=== PATIENT | female | born 2000 | race Caucasian/White ===

== ENCOUNTER 2023-03-08 17:56 | Emergency (ER) | payer OTHER, SELFPAY ==
[2023-03-08 17:59] VITALS: BP 120/80; PULSE 63; RESP 18; TEMP 36.8; O2SAT 100; BMI 22.6
--- NOTE | 2023-03-08 18:07 | ED_ITS ---
HPI - General Adult General Chief complaint: Dental/Oral/Mouth Injury/Pain Stated complaint: Upper tooth abscess Time Seen by Provider: 03/08/23 17:57 Source: patient Mode of arrival: ambulatory Limitations: no limitations History of Present Illness HPI narrative: 22-year-old female coming in today concerned about a dental abscess. Complains of pain and swelling along the upper left gumline. Tried calling dentist today but could not find a provider excepting MA. Denies any systemic symptoms. Related Data Home Medications Medication Instructions Recorded Confirmed norelgestromin 150 mcg-e.estradiol 1 patch topical 03/08/23 35 mcg/24 hr weekly transderm patch (Zafemy) valacyclovir 500 mg tablet 500 mg PO DAILY 03/08/23 03/08/23 Allergies Allergy/AdvReac Type Severity Reaction Status Date / Time No Known Drug Allergies Allergy Verified 03/08/23 18:01 Review of Systems Status of ROS: Reports: 6 or more systems reviewed and unremarkable except as noted in History and below Exam Narrative: Exam Narrative: Well-nourished well-developed patient in no acute distress. Alert and oriented. Answers questions appropriately. Mood and affect are appropriate. Thoughts are goal oriented and rational. No tangential or magical thinking noted. Patient speaks in full sentences without needing to catch her breath. HEENT: Normocephalic atraumatic. Pupils are equally round reactive to light. Extraocular muscles are intact. Conjunctivae are moist without any icterus noted. Moist mucous membranes. Posterior pharynx is normal. Patient has multiple piercings across the face. Teeth are intact. Along the upper gum line patient has a small ulceration. There is no evidence of abscess, no fluctuance. No drainage. Some surrounding erythema concerning for infection. Skin: Well perfused without any obvious rashes. Const: Vital Signs, click to edit/add: Vital Signs - 24 hr 03/08/23 17:59 Temperature 98.2 F Pulse Rate [Right Pulse Oximeter] 63 Respiratory Rate 18 Blood Pressure [Ri ght Upper Arm] 120/80 Pulse Oximetry 100 Oxygen Delivery Me thod Room Air Course Vital Signs Vital signs: Initial Vital Signs Temperature 98.2 F 03/08/23 17:59 Temperature Source Temporal Artery Scan 03/08/23 17:59 Pulse Rate 63 03/08/23 17:59 Respiratory Rate 18 03/08/23 17:59 Blood Pressure 120/80 03/08/23 17:59 Blood Pressure Mean 93 03/08/23 17:59 Blood Pressure Position Sitting 03/08/23 17:59 Pulse Oximetry 100 03/08/23 17:59 Oxygen Delivery Method Room Air 03/08/23 17:59 Vital Signs Temperature 98.2 F 03/08/23 17:59 Pulse Rate 63 03/08/23 17:59 Respiratory Rate 18 03/08/23 17:59 Blood Pressure 120/80 03/08/23 17:59 Pulse Oximetry 100 03/08/23 17:59 Oxygen Delivery Method Room Air 03/08/23 17:59 Temperature 98.2 F 03/08/23 17:59 Pulse Rate 63 03/08/23 17:59 Respiratory Rate 18 03/08/23 17:59 Blood Pressure 120/80 03/08/23 17:59 Pulse Oximetry 100 03/08/23 17:59 Oxygen Delivery Method Room Air 03/08/23 17:59 Medical Decision Making MDM Narrative Medical decision making narrative: 22-year-old female with a small gingival ulceration and surrounding erythema. We will go ahead and put her on Augmentin and have her follow-up with a dentist as needed. We discussed wound hygiene and oral hygiene. Discharge Plan Discharge Clinical Impression: Gingival ulcer Patient Disposition: Home, Self-Care Condition: Stable Additional Instructions: Take all antibiotics as prescribed. Okay to use ibuprofen or Tylenol as needed/as directed for discomfort. Follow-up with dentist. Meds sent to [facility]. Prescriptions: No Action valacyclovir 500 mg tablet 500 mg PO DAILY Zafemy 150-35 mcg/24 hr patch weekly 1 patch topical Follow Up/Referrals: Jaye Antonio MD [Primary Care Provider] - Stand Alone Forms: [employer] Info Instructions
--- NOTE | 2023-03-08 18:19 | ED.NURSE ---
unable to assess due to being cleared by MD to go home.
== END 2023-03-08 18:34 | disposition home or self-care (01) ==
LOC: ED 18:32
PROVIDERS: Emergency Provider Family Medicine; PCP Family Medicine
DX: K12.2 Cellulitis and abscess of mouth (principal)
CPT/HCPCS: 99283

== ENCOUNTER 2025-04-15 11:11 | Outpatient (CLI) | payer BC, SELFPAY ==
[2025-04-15 11:39] VITALS: BP 127/65; PULSE 75
[2025-04-15 11:51] VITALS: TEMP 36.8
--- NOTE | 2025-04-15 13:53 | PC.OBNST ---
The provider's electronic signature indicates the NST is reactive/appropriate for gestational age. *Note to provider: If an addendum is required, open the patient's chart and click on the note under the Nurse/Allied Health tab. The provider's electronic signature indicates the NST is reactive/appropriate for gestational age. *Note to provider: If an addendum is required, open the patient's chart and click on the note under the Nurse/Allied Health tab.
--- NOTE | 2025-04-24 09:59 | PC.OBNST ---
NST Note NST Note Start: 04/15/25 11:25 Freq: ONCE Status: Discharge Protocol: Document 04/15/25 13:54 LNP (Rec: 04/15/25 13:58 LNP No Response) NST Note 4 Para (# of births) 1 EDC 04/12/25 Gestational Age In 40 Weeks & 3 Days Weeks & Days Patient Presented Other with Complaint(s) of Other Complaints Pt is 3 days overdue and states she wanted to come in to get checked out. Having occassional contractions Reactive Yes Appropriate for Yes Gestational Age BERNADETTE Daniels Date 04/15/25 Reactive Yes Appropriate for Yes Gestational Age BERNADETTE Roberts Date 04/15/25 OB NST charge Yes Complete NST Note Yes via Write Note The provider's electronic signature indicates the NST is reactive/appropriate for gestational age. *Note to provider: If an addendum is required, open the patient's chart and click on the note under the Nurse/Allied Health tab.
== END 2025-04-15 13:15 | disposition home or self-care (01) ==
LOC: OB OUT 11:16 → OB 11:19
PROVIDERS: PCP Family Medicine; Visit Provider Family Medicine
DX: O47.1 False labor at or after 37 completed weeks of gestation (principal); Z3A.40 40 weeks gestation of pregnancy
CPT/HCPCS: 59025; G0463

== ENCOUNTER 2025-04-18 08:26 | Inpatient (IN) | payer BC, SELFPAY ==
[2025-04-18] VITALS (38 sets, daily range): BP systolic 94–138; BP diastolic 66–86; PULSE 30–108; RESP 16; TEMP 36.6; O2SAT 97–100; BMI 28.8
--- NOTE | 2025-04-18 08:44 | PM.OBHPLI ---
OB - H&P: HPI Labor/Induction History of Present Illness Time Seen by Provider: 08:44 Date Seen: 04/18/25 Chief Complaint: The patient is a 24 year old 4 para 1 at 40.6 weeks gestation by early ultrasound (unknown LMP, was on contraceptive patches on conception), who presents with active labor. Chief complaint: Labor : 4 Para: 1 Narrative: Alysa Jarrett is a 24 year old female 4 para 1 at 40.6 weeks gestation by early ultrasound (unknown LMP, was on contraceptive patches on conception), who presents with active labor. Patient presents to labor and delivery at 7.5 cm. Started janette more last evening, but became more intense this morning at 0245. She reports good movement. Some bloody show, no gushes of fluid. She otherwise feels well. VERNON is 04/12/2025. Has history of HSV, on acyclovir. Had 3rd degree laceration with prior delivery (baby was 8 lbs 12 oz). Plans to formula feed. Has requested Epidural. History of Present Dating criteria: based on 1st trimester US only care: good care Ultrasounds: normal 1st trimester US and normal mid trimester US Abnormal ultrasound findings: Growth ultrasound 76th percentile, abdominal circumference 90th Percentile. Medical complications: none Labs Blood type: A (+) positive Rubella: immune RPR/VDLR: nonreactive GBS status: negative HBsAG: negative Review of Systems Status of ROS: Reports: 10 or more systems reviewed and unremarkable except as noted in History and below Meds Home Medications and Allergies Home Medications ?Medication ?Instructions ?Recorded ?Confirmed ?Type valacyclovir 500 mg tablet 500 mg PO DAILY 03/08/23 04/15/25 History Allergies Allergy/AdvReac Type Severity Reaction Status Date / Time No Known Drug Allergies Allergy Verified 03/08/23 18:01 OB - H&P: Exam Constitutional: Constitutional: no acute distress Routine HEENT Exam: Head: Present atraumatic and normal inspection Routine Neck Exam: Neck: Present full ROM Detailed Neck Exam: Thyroids: Thyroid: Present normal Routine Respiratory Exam: Respiratory: Present CTA bilaterally Routine Cardiovascular Exam: Cardiovascular: RRR, S1 and S2 Detailed Labor and Delivery Exam: Patient Gravid: yes Dilation (cm): 7 Contraction frequency (min): 3 Tachysystole: No Contraction intensity: Strong/Firm Fetus (Single): Amniotic Membrane Status: intact Heart Rate Baseline: 130 Monitor Accelerations: Present Monitor Decelerations: None Armature Straightener Variability: Moderate (6-25) Routine Extremities Exam: Extremities: Absent calf tenderness Routine Back/Spine/Pelvis Exam: Back/Spine: full ROM Routine Skin Exam: Present intact Routine Neurological Exam: Present alert and oriented X3 Routine Psychiatric Exam: Present normal affect OB - Problem Based A/P Additional Plan (1) Active labor at term: Problem details: Admitted to labor and delivery at 7.5 cm dilation after starting contractions at 0245. Status: Acute (2) History of herpes genitalis: Problem details: on prophylactic acyclovir. no lesions. Status: Acute Delivery/Labor/Induction Plan Plan: expectant management
[2025-04-18] MEDS: LACTATED RINGERS 1000 ML 1,000 ML 125 ML IV ×2 (08:55→09:50)
[2025-04-18 09:11] LABS: Hematocrit* 38.4 % (33.0-51.0); Hemoglobin* 12.3 gm/dL (12.0-16.0); Immature Granulocytes Pct Auto 0.5 %; Mean Corpuscular HGB Conc 32 gm/dL (32-36); Mean Corpuscular Hemoglobin 28 pg (26-34); Mean Corpuscular Volume 87 fL (80-100); RDW Coefficient of Variation % 16.1 % (11.5-15.5); Red Blood Count* 4.41 m/uL (4.00-5.20); White Blood Count* 14.44 K/uL (4.50-11.00)
[2025-04-18 09:21] LABS: Immature Granulocytes Abs Auto 0.10 K/uL (0.00-0.30); Lymphocytes Absolute Auto 2.30 K/uL (0.90-2.90); Slide Review Reflex No
[2025-04-18] MEDS: LIDOCAINE 2% (PF) 5 ML VIAL EPIDURAL (09:35)
[2025-04-18] MEDS: ROPIVACAINE 0.2% 100 ml 100 ML 12 MG EPIDURAL (09:44)
--- NOTE | 2025-04-18 09:51 | P.ANBPRC_ITS ---
[facility] Medical History (Updated 04/18/25 @ 08:57 by Jaye Antonio MD) Active labor at term Anxiety ?F41.9 - Anxiety disorder, unspecified (ICD-10) Miscarriage ?O03.9 - Complete or unspecified spontaneous without complication (ICD-10) Surgical History H/O dilation and curettage ?Z98.890 - Other specified postprocedural states (ICD-10) Social History What is your current living situation?: I presently have a place to live Problems where you live: no known problems In the past 12 months, utilities in danger of being shut off: no In past 12 months, lack of transportation kept you from medical appts, meetings, work, or getting things needed for daily living: no In the past 12 mos, have been you worried that your food would run out before you had money to buy more?: never true In the past 12 mos, the food you bought just didn't last and you didn't have money to buy more?: never true Smoking Status: Former smoker How often does anyone, including family, friends and others, physically hurt you : never How often does anyone, including family, friends and others, insult or talk down to you: never How often does anyone, including family, friends and others, threaten you with harm: never How often does anyone, including family, friends and others, scream or curse at you: never Meds Home Medications and Allergies Home Medications ?Medication ?Instructions ?Recorded ?Confirmed ?Type valacyclovir 500 mg tablet 500 mg PO DAILY 03/08/23 History Allergies Allergy/AdvReac Type Severity Reaction Status Date / Time No Known Drug Allergies Allergy Verified 03/08/23 18:01 Results Labs Labs: Laboratory Results - last 24 hr 04/18/25 08:55 WBC 14.44 H RBC 4.41 Hgb 12.3 Hct 38.4 MCV 87 MCH 28 MCHC 32 RDW Coeff of Fernando 16.1 H Plt Count 174 Neut % (Auto) 74.4 H Lymph % (Auto) 16.1 L Wayne % (Auto) 7.8 Eos % (Auto) 0.7 Baso % (Auto) 0.5 Neut # (Auto) 10.70 H Lymph # (Auto) 2.30 Wayne # (Auto) 1.10 H Eos # (Auto) 0.10 Baso # (Auto) 0.10 Abs Immat Gran (auto) 0.10 Imm/Tot Granulo (auto) 0.5 Vital Signs Vital Signs: Last Vital Signs Pulse 81 04/18/25 09:46 BP 117/71 04/18/25 09:46 Pulse Ox 99 04/18/25 09:47 Weight: 81.193 kg Height: 167.64 cm Anesthesia Procedures Epidural Insertion Patient Location: OB Start Time: :10 Stop Time: 09:50 Start Date: 04/18/25 Stop Date: 04/18/25 Reason for Block: procedure for pain Patient Position: sitting Performed By: Myra Reid Preanesthetic Checklist: IV checked, site marked, risks and benefits discussed, monitors and equipment checked, pre-op evaluation, timeout performed and anesthesia consent Prep: chlorhexidine gluconate Monitoring: blood pressure monitoring, continuous pulse oximetry and heart rate Approach: midline Vertebral Space: lumbar (1-5) Epidural Technique: ARLEY saline Needle Type: Tuohy needle Injection Technique: continuous catheter Needle gauge: 17 Needle Length (cm): 10 cm Needle Insertion Depth (cm): 5 Catheter Gauge: 19 Catheter Type: multi-orifice Catheter at skin depth (cm): 15 Test Dose Result: negative and lidocaine 1.5% with epinephrine 1 to 200,000
--- NOTE | 2025-04-18 10:25 | P.OBPN_ITS ---
Subjective Time Seen by Provider: 10: Date Seen: 04/18/25 Narrative: Patient is comfortable with epidural. Objective Vital Signs: Last Vital Signs Temp 97.9 F 04/18/25 10:00 Pulse 95 04/18/25 09:59 BP 123/67 04/18/25 09:59 Pulse Ox 100 04/18/25 09:57 Pelvic Exam Dilation (cm): 9 Effacement (%): 100 Station: +1 Contractions Monitor mode: External Contraction Frequency: 2-3 Contraction pattern: Regular Contraction intensity: Strong/Firm Pitocin Rate (mU/min): 0 Assessment Assessment: active labor Station: +1 Amniotic Membrane Status: AROM (light meconium fluid) Status: Category l Heart Rate Baseline: [address] Variability: Moderate (6-25) Monitor Accelerations: Present Monitor Decelerations: Variable Tracing Comments: early and variable decels Labor Progress: Progressing well Plan Plan: - anticipate - doing well with epidural. Anxious about possibility of tearing (had 3rd degree laceration with first) - Peds provider contacted for attendance at delivery.
--- NOTE | 2025-04-18 11:48 | PM.OBPNL ---
Subjective Time Seen by Provider: 11:48 Date Seen: 04/18/25 Narrative: Patient is feeling a bit more pressure. Objective Exam: resting comfortably Vital Signs: Last Vital Signs Temp 97.8 F 04/18/25 11:00 Pulse 85 04/18/25 11:47 BP 118/75 04/18/25 11:47 Pulse Ox 100 04/18/25 09:57 Pelvic Exam Dilation (cm): 9 Effacement (%): 100 Station: +1 Contractions Monitor mode: External Contraction pattern: Regular Contraction intensity: Strong/Firm Pitocin Rate (mU/min): 0 Assessment Assessment: active labor Station: +1 Amniotic Membrane Status: AROM (light meconium fluid) Status: Category l Heart Rate Baseline: 125 Monitor Accelerations: Present Monitor Decelerations: Variable Plan Plan: - will start pitocin to augment labor - anticipate
[2025-04-18] MEDS: OXYTOCIN 30 unit/500 ML in NS 30 UNIT/500 ML BAG IVPB (11:51)
[2025-04-18] MEDS: LIDOCAINE 1 % PF 30 ML INJECTION (13:32)
[2025-04-18] MEDS: miSOPROStoL 800 MCG/4 TABLET PR (13:39)
--- NOTE | 2025-04-18 13:49 | W.PM.OBVAGDE ---
OB Procedure Vag Delivery Mother Details Mother Details: The patient is a 24 year-old, 4, Para 1, admitted on 04/18/25 at 40.6 Days gestation. : 4 Para: 1 Weeks Gestation: 40.6 Admission Date: 04/18/25 Additional Details Amniotic Membrane Status: AROM (meconium stained) Amniotic Membrane Rupture Date: 04/18/25 Amniotic Membrane Rupture Time: 09:56 Amniotic Membrane Fluid Description: Meconium Stained (light mec) Analgesia/Anesthesia Type: Epidural Waterbirth: No Pitcoin: Yes Intrapartal Events: Labor Augmentation Delivery augmentation: rupture of membranes and pitocin Labor Onset: 03:00 Complete: 13:06 Pushin:16 Heart: heart tones during second stage were category 2. Did have bradycardia between last 2 contractions that did not resolve (70-80s). Delivery Details Delivery Date: 04/18/25 Delivery Time: 13:23 Route of delivery: Infant Gender: Female Infant Viability: Alive; Heart Rate Present Position at Delivery: OA Delivery Details: Patient was admitted in active labor at 7.5 cm. She progressed to 9 cm and then stalled. We did AROM and then pitocin to augment labor. Patient became complete, pushing very effectively. Delivered via spontaneous vaginal delivery through intact perineum. Nuchal was reduced x 1. Infant was placed on maternal abdomen.? Cord was clamped and cut after a 30 second delay. Nose and mouth were bulb suctioned.? Infant weight pending. 1 Minute Interval Total Score: 7 5 Minute Interval Total Score: 9 Additional Details Shoulder Dystocia: No Placenta Delivery Time: 13:29 Placental Delivery Description: Spontaneous Delivery repair: Vicryl Procedure Done: Global Blood Loss: 100 Laceration: Perineal - 2nd Degree Blood Loss Measurement Type: QBL Bakri Used: No Sponge/Need Count Correct: Yes Cord Vessel Description: 3 Vessels and Nuchal Cord Event Summary Status: Mother and were stable after delivery. Disposition: floor
[2025-04-19] MEDS: ACETAMINOPHEN 500 MG TABLET 1000 MG PO ×2 (00:39→08:16)
[2025-04-19 00:48] VITALS: BP 114/70; PULSE 82; RESP 16; TEMP 36.8; O2SAT 96
[2025-04-19 05:00] VITALS: BP 129/83; PULSE 63; RESP 20; TEMP 36.6; O2SAT 98
[2025-04-19 05:46] LABS: Hemoglobin* 10.9 gm/dL (12.0-16.0)
--- NOTE | 2025-04-19 07:51 | P.DS_ITS ---
DS: Providers Provider Date Seen: 04/19/25 Date of admission: 04/18/25 08:26 Primary care physician: Jaye Antonio MD Admitting Clinician: Jaye Antonio MD Attending Physician on discharge: Jaye Antonio MD Date of Discharge: 04/19/25 DS: Diagnosis Discharge Diagnosis (1) (normal spontaneous vaginal delivery): Status: Acute Exam Const: Vital Signs, click to edit/add: Vital Signs - 24 hr 04/18/25 09:27 04/18/25 09:32 04/18/25 09:36 Temperature Pulse Rate 82 83 82 Pulse Rate [Pulse Oximeter] Respiratory Rate Blood Pressure 127/76 122/73 119/68 Blood Pressure [Le ft Arm] Pulse Oximetry 98 [facility] 04[facility] 09:37 04/18/25 09:38 04/18/25 09:40 Temperature Pulse Rate 90 80 Pulse Rate [Pulse Oximeter] Respiratory Rate Blood Pressure 118/68 119/68 Blood Pressure [Le ft Arm] Pulse Oximetry 99 [facility] 04[facility]18/25 09:42 04/18/25 09:44 04/18/25 09:46 Temperature Pulse Rate 90 88 81 Pulse Rate [Pulse Oximeter] Respiratory Rate Blood Pressure 114/66 112/67 117/71 Blood Pressure [Le ft Arm] Pulse Oximetry 99 [facility] 04/18/25 09:47 04/18/25 09:52 04/18/25 09:57 Temperature Pulse Rate 104 H Pulse Rate [Pulse Oximeter] Respiratory Rate Blood Pressure 112/66 Blood Pressure [Le ft Arm] Pulse Oximetry 99 100 100 [facility] 04/18/25 09:59 04/18/25 10:00 04/18/25 10:31 Temperature 97.9 F Pulse Rate 95 88 Pulse Rate [Pulse Oximeter] Respiratory Rate Blood Pressure 123/67 111/68 Blood Pressure [Le ft Arm] Pulse Oximetry [facility] 04/18/25 10:46 04/18/25 11:00 04/18/25 11:01 Temperature 97.8 F Pulse Rate 80 91 Pulse Rate [Pulse Oximeter] Respiratory Rate Blood Pressure 118/69 110/66 Blood Pressure [Le ft Arm] Pulse Oximetry [facility] 04/18/25 11:16 04/18/25 11:31 04/18/25 11:47 Temperature Pulse Rate 80 80 85 Pulse Rate [Pulse Oximeter] Respiratory Rate Blood Pressure 117/66 118/69 118/75 Blood Pressure [Le ft Arm] Pulse Oximetry Oxygen Delivery Me thod 04/18/25 12:02 04/18/25 12:16 04/18/25 12:32 Temperature Pulse Rate 85 88 85 Pulse Rate [Pulse Oximeter] Respiratory Rate Blood Pressure 119/70 113/69 121/73 Blood Pressure [Le ft Arm] Pulse Oximetry Oxygen Delivery Ny thod 04/18/25 12:46 04/18/25 13:01 04/18/25 13:16 Temperature Pulse Rate 83 77 103 H Pulse Rate [Pulse Oximeter] Respiratory Rate Blood Pressure 122/74 115/67 129/71 Blood Pressure [Le ft Arm] Pulse Oximetry Oxygen Delivery Ny thod 04/18/25 13:31 04/18/25 13:46 04/18/25 14:00 Temperature 97.8 F Pulse Rate 83 86 Pulse Rate [Pulse Oximeter] Respiratory Rate Blood Pressure 118/66 113/79 Blood Pressure [Le ft Arm] Pulse Oximetry 100 Oxygen Delivery Ny thod 04/18/25 14:01 04/18/25 14:16 04/18/25 14:31 Temperature Pulse Rate 85 75 30 L Pulse Rate [Pulse Oximeter] Respiratory Rate Blood Pressure 106/78 114/76 94/70 Blood Pressure [Le ft Arm] Pulse Oximetry [facility] 04/[facility]25 14:46 04/18/25 15:01 04/18/25 15:16 Temperature Pulse Rate 74 67 72 Pulse Rate [Pulse Oximeter] Respiratory Rate Blood Pressure 138/86 130/81 130/80 Blood Pressure [Le ft Arm] Pulse Oximetry [facility] 04/18/25 15:31 04/18/25 19:50 04/19/25 00:48 Temperature 98.3 F Pulse Rate 90 Pulse Rate [Pulse Oximeter] 88 82 Respiratory Rate 16 16 Blood Pressure 130/79 Blood Pressure [Le ft Arm] 129/77 114/70 Pulse Oximetry 97 96 [facility] Room Air 04/19/25 05:00 Temperature 97.9 F Pulse Rate Pulse Rate [Pulse Oximeter] 63 Respiratory Rate 20 Blood Pressure Blood Pressure [Le ft Arm] 129/83 Pulse Oximetry 98 Oxygen Delivery Me thod Room Air Common normals: no apparent distress Resp: Common normals: normal respiratory effort and clear to auscultation bilaterally Auscultation: clear to auscultation bilaterally Cardio: Common normals: regular rate and regular rhythm Rate: regular rate Rhythm: regular rhythm GI: Common normals: soft to palpation Palpation: soft : Uterus: U/U and firm Extremity: Common normals: normal to inspection OB - DS: Summary Hospital Course Hospital Course: The patient is a 24 year old G 4 P 2021 at 40.6 weeks gestation that was admitted to the Center on 04/18/25 for active labor. She had an uncomplicated vaginal delivery. She delivered a viable female infant. She is bottle feeding. the patient has done well. Peripartum Data delivery method: Vaginal complications: none Infant Gender: Female Discharge Plan: Home Status at Discharge Functional status at discharge: independent ambulation Overall status at discharge: patient is progressing back to baseline Time Spent with Patient Time attestation: Total time spent providing and/or coordinating discharge services: Time spent: Less than 30 minutes Discharge Plan Discharge Disposition: Home, Self-Care Date of Admission: 04/18/25 08:26 Attending Provider on Discharge: Flaquita King Primary Care Provider: Jaye Antonio Condition: Improved Anticipated Discharge Date/Time: 04/19/25 07:54 Discharge Medications: Discontinued valacyclovir 500 mg tablet 500 mg PO DAILY Discharge Orders: Discharge Order (Routine); Ordered 04/19/25 Ordered By: Flaquita King Patient Education: OB Vaginal/Bottle Feeding Activity Level: Activity as Tolerated Activity Detail: nothing per vagina x6 weeks Discharge Diet: Regular Follow Up Appointments: Jaye Antonio MD [Primary Care Provider, Family Practice] Referral Note: in 6 weeks. Forms: [employer] Info Instructions
[2025-04-19] MEDS: DOCUSATE SODIUM 100 MG CAPSULE PO (08:17)
[2025-04-19 08:22] VITALS: BP 124/84; PULSE 80; RESP 18; TEMP 36.4; O2SAT 97
[2025-04-19 11:03] VITALS: BP 127/83; PULSE 66; RESP 16; TEMP 36.6; O2SAT 99
[2025-04-19] MEDS: IBUPROFEN 600 MG TABLET PO (11:08)
--- NOTE | 2025-04-19 14:20 | PM.ANPOST ---
Post Anesthesia Note Post Anesthesia Note Patient seen: Inpatient Respiratory Status: adequate Cardiovascular Status: adequate Mental Status: baseline Pain: adequate Temp: baseline Anesthetic awareness: N/A Complications: none Follow care: none
== END 2025-04-19 17:10 | disposition home or self-care (01) | DRG 560 ==
PROVIDERS: Admitting Provider Family Medicine; PCP Family Medicine; Visit Provider Family Medicine
DX: O48.0 Post-term pregnancy (principal); O77.0 Labor and delivery complicated by meconium in amniotic fluid; O70.1 Second degree perineal laceration during delivery; O98.32 Other infections with a predominantly sexual mode of transmission complicating childbirth; A60.00 Herpesviral infection of urogenital system, unspecified; Z37.0 Single live birth; Z3A.40 40 weeks gestation of pregnancy
CPT/HCPCS: 01967; 36415; 85018; 85025; 86592; A9270; J2003; J2795; J7120